=== PATIENT | male | born 1985 | race Hispanic/Latino ===

== ENCOUNTER → 2017-11-15 | Day surgery (SDC) | payer OTHER ==
[~2017-11-15] MED LIST: BALANCED SALT SOLN (OPTH) 15 ML BTL IO ONE; BUPIVACAINE HC 0.75% PF 10ML VIAL INJ ONE; FENTANYL CITRATE/PF 100MCG/2 ML INJ ONE; LIDOCAINE 2%/ EPINEPHRINE 20ML MDV ONE; LIDOCAINE HCL 1% 30ML-PF VIAL ONE; MIDAZOLAM HCL 5 MG/ML VIAL ONE; NEOMYCIN/POLYMYXIN/DEX (OPTH) 3.5 GM TUBE ONE; POVIDONE IODINE 5% (OPTH) 30 ML BTL ONE
--- NOTE | 2017-11-18 13:10 | Operative Report ---
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 PROCEDURE PERFORMED: 1. Pterygium excision left eye nasal. 2. Amniotic membrane graft placement left eye nasal. 3. Superficial keratectomy left eye nasal. 4. Mitomycin-C 0.25 mg per mL, 60 seconds, left eye nasal. ANESTHESIA: MAC. COMPLICATIONS: None. PROCEDURE: The patient was taken to the operating room where he received tetracaine drops placed in the eye. The patient's eye was then prepped and draped in the usual sterile opthalmic fashion. A lid speculum was placed in the eye. Two 6-0 sterile stay sutures were placed at the limbus, and the pterygium was localized. It was incised and very carefully removed away from the sclera and cornea using 0.12 forceps and Kimberly scissors. Once it was removed, it was sent for pathology. Wet-Field cautery was used to control any bleeding. Mitomycin was soaked in a cottonoid and placed on the edge of the conjunctiva with 0.25 mg per mL. It was placed there for 60 seconds, and copious amounts of BSS solution were used to irrigate this off. The graft measured 10 x 15 mm. It was secured using fibrin and thrombin glue. Excess glue and tissue were cut to size using Kimberly scissors and 0.12 forceps. Patient had Maxitrol ointment, a patch and Simon shield placed in the eye and tolerated the procedure well and will be seen in my office tomorrow. Serial number is [id number]. Job#: [id number]
== END | disposition home or self-care (01) ==
LOC: OR 13:13
PROVIDERS: ATTEND Ophthalmology
DX: H11.052 Peripheral pterygium, progressive, left eye (principal)
CPT/HCPCS: 65426; 88305; J2001 ×2; J2250